=== PATIENT | male | born 1990 | race Caucasian/White ===

== ENCOUNTER 2017-04-09 09:00 | Emergency (ER) | payer OTHER ==
[2017-04-09 09:39] VITALS: BP 128/77
--- NOTE | 2017-04-09 09:51 | ED ---
Lower Extremity - HPI Summary HPI Summary: 26 yr old male with complaint of right knee pain. Onset 4 days ago. He was walking on the ice and twisted his right leg when slipped on the ice. Complains of pain over the medial right pao, moderate, worse with walking. Denies falling directly on the knee. No other complaints. - History of Current Complaint Chief Complaint: UCLowerExtremity Stated Complaint: RIGHT KNEE PAIN Time Seen by Provider: 04/09/17 09:13 Pain Intensity: 8 - Allergies/Home Medications Allergies/Adverse Reactions: Allergies Allergy/AdvReac Type Severity Reaction Status Date / Time clindamycin Allergy Rash Verified 04/09/17 09:33 Between Fingers Home Medications: Home Medications Amphetamine MIXED SALT TAB* [Adderall TAB*] 10 mg PO DAILY 04/09/17 [History Confirmed 04/09/17] Penicillin VK TAB* [Penicillin VK 250 mg Tab*] 500 mg PO BID 04/09/17 [History Confirmed 04/09/17] PMH/Surg Hx/FS Hx/Imm Hx Endocrine/Hematology History: Denies: Hx Diabetes, Hx Thyroid Disease Cardiovascular History: Denies: Hx Hypertension Respiratory History: Denies: Hx Asthma, Hx Chronic Obstructive Pulmonary Disease (COPD) GI History: Denies: Hx Ulcer - Surgical History Surgery Procedure, Year, and Place: Right Nephrectomy s/p Trauma, ~1998, [place] Infectious Disease History: No Infectious Disease History: Denies: Hx Hepatitis, Hx Human Immunodeficiency Virus (HIV), History Other Infectious Disease, Traveled Outside the [place] in Last 30 Days - Family History Known Family History: Positive: None Family History: NON CONTRIBUTORY - Social History Occupation: Employed Full-time Alcohol Use: Weekly Substance Use Type: Reports: None Smoking Status (MU): Heavy Every Day Tobacco Smoker Type: Cigarettes Amount Used/How Often: 1/2 PPD Length of Time of Smoking/Using Tobacco: Since Age 19 Review of Systems Constitutional: Negative Positive: Other - right knee pain after slip and twisting on ice All Other Systems Reviewed And Are Negative: Yes Physical Exam Triage Information Reviewed: Yes Vital Signs On Initial Exam: Initial Vitals Temp Pulse Resp BP Pulse Ox 98.6 F 80 16 128/77 100 04/09/17 09:30 04/09/17 09:30 04/09/17 09:30 04/09/17 09:30 04/09/17 09:30 Vital Signs Reviewed: Yes Appearance: Positive: Well-Appearing, No Pain Distress Skin: Positive: Warm, Skin Color Reflects Adequate Perfusion Head/Face: Positive: Normal Head/Face Inspection Eyes: Positive: EOMI ENT: Positive: Pharynx normal Neck: Positive: Nontender Respiratory/Lung Sounds: Positive: Clear to Auscultation, Breath Sounds Present Cardiovascular: Positive: RRR. Negative: Murmur Musculoskeletal: Positive: Other - right knee with small effusion, and tenderness over the medial tibial plateau. Neurological: Positive: Sensory/Motor Intact, Alert, Oriented to Person Place, Time, CN Intact II-III Psychiatric: Positive: Normal - [place] Coma Scale Best Eye Response: 4 - Spontaneous Best Motor Response: 6 - Obeys Commands Best Verbal Response: 5 - Oriented Coma Scale Total: 15 Diagnostics - Vital Signs Vital Signs Temp Pulse Resp BP Pulse Ox 04/09/17 09:30 98.6 F 80 16 128/77 100 - Laboratory Lab Statement: Any lab studies that have been ordered have been reviewed, and results considered in the medical decision making process. - Radiology knee right Xray Interpretation: No Acute Changes Radiology Interpretation Completed By: Radiologist Lower Extremity Course/Dx - Course Course Of Treatment: 26 yr old male with right knee sprain. Xray OK. He knows he needs to follow up with orthopedics for possible outpatient MRI. - Diagnoses Provider Diagnoses: Internal derangement of knee Discharge - Discharge Plan Condition: Good Disposition: HOME Prescriptions: Ibuprofen TAB* [Motrin TAB* 600 MG] 600 mg PO Q6H PRN #20 tab PRN Reason: Pain Patient Education Materials: Knee Sprain (ED) Forms: *Work Release Referrals: No Primary Care Phys,NOPCP [Primary Care Provider] - Charlie Obrien MD [Medical Doctor] -
--- NOTE | 2017-04-09 10:03 | RAD ---
INDICATION: Right knee injury. TECHNIQUE: 4 views of the right knee were obtained. FINDINGS: The bones are in normal alignment. No joint effusion or fracture is seen. Joint spaces appear maintained. IMPRESSION: NO EVIDENCE FOR FRACTURE.
== END 2017-04-09 10:40 | disposition home or self-care (01) ==
LOC: UCCORT 09:00
DX: M23.91 Unspecified internal derangement of right knee (principal); W00.0XXA Fall on same level due to ice and snow, initial encounter; Y93.9 Activity, unspecified; Y92.9 Unspecified place or not applicable; F17.210 Nicotine dependence, cigarettes, uncomplicated
CPT/HCPCS: 99211; G0463

== ENCOUNTER 2017-04-23 09:04 | Day surgery (SDC) | payer OTHER ==
--- NOTE | 2017-04-20 20:10 | HP ---
PREOPERATIVE HISTORY AND PHYSICAL: DATE OF ADMISSION/SURGERY: 04/23/17 ATTENDING SURGEON: Pamela Roland MD * (DICTATED BY RICH LEWIS) PROCEDURE: Right knee arthroscopy, partial meniscectomy. CHIEF COMPLAINT: Right knee. 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 The patient states that on 04/04/17, he was walking on ice when he slipped and his leg went out from under him, he twisted his knee. He states the next morning he had significant pain, swelling and pain with weightbearing. He states that he continues to have some pain in the medial aspect of his knee. He described it as an intermittent sharp shooting pain. He rates it as an 8/ 10. He reports catching. The pain is worse at the end of the day. He rested for several days with time off work, which did not improve the pain. He has been using a brace, which is minimally helpful. He has not done any physical therapy and has not had any injection. He denies prior surgeries or complications with the knee prior to the fall. He is not requiring anything for pain. He has pain with deep flexion. He denies numbness, tingling, fever, chills, chest pain, or shortness of breath and is doing well otherwise. He has failed conservative measures and has therefore, agreed to undergo a right knee arthroscopy, partial meniscectomy with Dr. Roland on 04/23/17. PAST MEDICAL HISTORY: ADHD. PAST SURGICAL HISTORY: Kidney removed when he was 8, but denies prior complications with anesthesia. MEDICATIONS: Adderall 10 mg 1 capsule by mouth twice a day. ALLERGIES: CLINDAMYCIN. FAMILY HISTORY: Positive for recent DVT in his father. SOCIAL HISTORY: He lives alone. 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 He is a smoker of quarter pack per day. He reports occasional alcohol consumption. He exercises occasionally. He is right-hand dominant. REVIEW OF SYSTEMS: A 14-point review of systems was reviewed with the patient. Positive for current complaint, otherwise negative. Denies personal history of DVT or PE, history of bleeding disorder, chest pain, shortness of breath, fever , or chills. PHYSICAL EXAMINATION GENERAL: A 26-year-old well-developed, well-nourished male, in no acute distress. Alert and oriented x3. Appropriate mood and affect. VITAL SIGNS: Height 70, weight 200. Pulse 66, blood pressure 110/80, respiratory rate 16. BMI 28.7. HEENT: Normocephalic, atraumatic. PERRLA. Throat clear. NECK: Supple. PULMONARY: Lungs clear to auscultation bilaterally. No wheezing, rhonchi, or rales. CARDIO: Regular rate and rhythm. S1 and S2. No murmurs, gallops, or rubs. No edema. ABDOMEN: Positive bowel sounds. Soft, nontender. MUSCULOSKELETAL: Right lower extremity skin intact. No warmth or erythema. Mild effusion. Nontender over the MCL. Tenderness to palpation of the medial joint line. Stable with varus and valgus stress. Stable Mi. Negative posterior drawer. Range of motion is 0 to 130. Calves soft and nontender, +2 PT pulse, sensation is intact to light touch distally. Left lower extremity skin is intact. No warmth or erythema. Nontender to palpation. Full pain-free range of motion. Neurovascularly intact. NEUROLOGIC: Alert and oriented x3. Cranial nerves grossly intact. Sensation is intact to light touch. STUDIES: Multiple view x-rays and MRI of the right knee revealed posterior horn medial meniscus tear and joint effusion. IMPRESSION: Right knee medial meniscus tear. PLAN: Conservative measures versus operative treatment were discussed with the patient as was partial meniscectomy versus meniscus repair, including recovery time and postop course. The patient has agreed to undergo a partial meniscectomy because he does not have the time for meniscus repair at this time and would like the pain to resolve, so that he can get back to work without discomfort. It is explained to the patient that he is at increased risk of arthritis due to the injury and with a partial meniscectomy versus a repair. He is encouraged to keep his weight down, stay strong and stay active to decrease the risk of arthritis in the future. Risks of surgery to include infection, bleeding, injury to nerves, surrounding structures, blood vessels, numbness, scarring, stiffness, and blood clot were discussed with the patient. Due to his dad's recent history of deep venous thrombosis, the patient will be placed on 10 days of Lovenox after surgery for DVT prophylaxis. Percocet was sent to the patient's pharmacy for postop pain management. He will follow up 10 to 14 days postop for followup and suture removal. RICH LEWIS [id number]/[facility] #: [id number] JULIO
[~2017-04-23 09:04] MED LIST: Buffered Lidocaine 0.9% SYRIN* 5 ML/SYR SYRINGE INTRADERM ONE; Famotidine IV* 10 MG/ML 2 ML (20 mg) IV ONE; Famotidine IV* 10 MG/ML 2 ML (20 mg) ONE; Metoclopramide TAB* 10 MG ONE; Metoclopramide TAB* 10 MG PO ONE
[2017-04-23] MEDS ORDERED: Lidocaine 2% PF * 5 ML VIAL ONE (10:10)
[2017-04-23] MEDS ORDERED: Ondansetron INJ* 2 MG/ML VIAL ONE (10:10)
[2017-04-23] MEDS ORDERED: fentaNYL* 50 MCG/ML 2 ML VIAL (100 MCG VIAL) ONE (10:10)
[2017-04-23] MEDS ORDERED: Dexamethasone IV* 4 MG/ML 1 ML (4 MG) ONE (10:10)
[2017-04-23] MEDS ORDERED: Propofol* 10 MG/ML 20 ML BTL IV PUSH ONE (10:10)
[2017-04-23] MEDS ORDERED: Midazolam* 1 MG/ML 2 ML VIAL (2 MG) ONE (10:11)
[2017-04-23] MEDS ORDERED: fentaNYL* 50 MCG/ML 2 ML VIAL (100 MCG VIAL) IV PRN (10:26)
[2017-04-23] MEDS ORDERED: Ondansetron INJ* 2 MG/ML VIAL IV PRN (10:26)
[2017-04-23] MEDS ORDERED: Naloxone* 0.4 MG/ML 1 ML VIAL IV PRN (10:26)
[2017-04-23] MEDS ORDERED: oxyCODONE/Acetamin 5/325 MG* TAB PO PRN (10:26)
[2017-04-23] MEDS ORDERED: Bupivacaine 0.25% SDV* 30 ML ONE (10:33)
[2017-04-23] MEDS ORDERED: Lidocaine 1% MPF wEPI 200,000* 30 ML SDV ONE (10:33)
[2017-04-23] MEDS ORDERED: ceFAZolin 2 GM in 100 MLS NS (*) BAG IVPB ONE (10:40)
[2017-04-23] MEDS ORDERED: oxyCODONE/Acetamin 5/325 MG* TAB ONE (12:07)
[2017-04-23 12:56] VITALS: BP 115/65
--- NOTE | 2017-04-24 12:20 | OP ---
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 ANESTHESIOLOGIST: Dr. Tran. ANESTHESIA: General. PRE-OP DIAGNOSIS: Right knee medial meniscus tear. POST-OP DIAGNOSIS: Right knee medial and lateral meniscal tears. OPERATIVE PROCEDURE: COMPLICATIONS: None. ESTIMATED BLOOD LOSS: Minimal. TOURNIQUET TIME: Zero minutes. INDICATIONS: Ricky Beatty is a 26-year-old male who sustained acute injury to his knee at the end of March. He was having persistent sharp shooting pain and he has failed conservative management. He had an MRI demonstrated a displaced acute meniscus tear. Risks and benefits of surgery versus nonoperative treatment were discussed at length. We also discussed option for repair due to the type of work he has and the persistent symptoms, he elected to proceed with the meniscectomy. Risks included, but are not limited to bleeding, infection, damage to nerves, vessels, surrounding structures, wound nonhealing, persistent pain, need for further surgery, scarring, stiffness, incomplete release of symptoms, and risks of anesthesia. DESCRIPTION OF PROCEDURE: The patient was greeted in the preoperative area by the attending surgeon. Correct extremity was marked and consent was confirmed. The patient was brought back to the operating suite, where he was placed in a supine position on the operating room table. He then underwent general anesthesia and LMA intubation after which an unsterile tourniquet was placed high on the proximal thigh. The lateral post was positioned. The right leg was prepped and draped in the usual sterile fashion beginning with chlorhexidine soap scrub and alcohol wipe and a final prep with ChloraPrep. After appropriate surgical pause indicating site, side, procedure, and administration of antibiotics, the knee was intra-articularly injected with 1% lidocaine with epinephrine. The lateral portal was made sharply with 11 blade. Scope was introduced into the joint. The joint was examined. There were grade 0 changes to the patellofemoral joints and medial and lateral gutters were without any loose debris or loose bodies. The scope was brought into the notch and there was abundant fat pad that was present. An anteromedial portal was made with 18 gauge for needle localization. There was evidence of a displaced meniscus tear, a parrot beak type of tear within a white-white zone. The medial portal was made with an 11 blade. The shaver and the biters were used to debride back the meniscus flap, which was the substantial part, but not the entirety of the meniscus, appeared to be the superior portion. Jitendra and biters were used to remove the remainder of the meniscus, approximately 20% of the meniscus was removed because there were the inferior portion of it, there was some tearing at the root, which was also debrided back using shaver. The medial femoral condyle and medial plateau had grade 0 to 1 changes. The scope was positioned in the notch and the notch was found to have an intact ACL and PCL. The scope was positioned in the lateral compartment and there was tearing at the root as well as fraying of the meniscus laterally. The shaver was used to debride at both the root as though the lateral meniscus, lateral femoral condyle, lateral plateau had grade 0 to 1 changes. Once the meniscectomy was completed, all fluid and debris was removed from the knee. There was abundant synovitis in the knee, which was also debrided back. The electro-cautery device was used to maintain hemostasis of the wound, was thoroughly lavaged. The wounds were copiously irrigated with sterile saline. The portals were closed with 3-0 nylon. The knee was intra-articularly injected with 0.25% Marcaine plain. Sterile dressings were applied as well as a Cryo/Cuff. He was awoken from anesthesia and transferred to PACU in stable condition. POSTOPERATIVE PLAN: He will be weightbearing as tolerated. He will be using crutches. He will be allowed range of motion as tolerated. I will see the patient back in 10 to 14 days. DVT prophylaxis was considered and he does have a strong family history; therefore, he was given a short course of Lovenox postoperatively. I will see the patient back in 10 to 14 days. [id number]/[facility] #: [id number] [facility]
== END 2017-04-23 13:19 | disposition home or self-care (01) ==
LOC: OREAST 09:04
PROVIDERS: ATTEND Orthopaedic Surgery
DX: S83.241A Other tear of medial meniscus, current injury, right knee, initial encounter (principal); S83.281A Other tear of lateral meniscus, current injury, right knee, initial encounter; W00.0XXA Fall on same level due to ice and snow, initial encounter; Y92.9 Unspecified place or not applicable; Z72.0 Tobacco use; F90.9 Attention-deficit hyperactivity disorder, unspecified type; Z90.5 Acquired absence of kidney
CPT/HCPCS: A9270-GY; J1100; J2001; J2250; J2405; J2704; J3010